=== PATIENT | male | born 1995 | race Caucasian/White ===

== ENCOUNTER 2019-11-06 14:29 | Emergency (ER) | payer BC ==
[2019-11-06 14:56] VITALS: BP 146/71
--- NOTE | 2019-11-06 15:09 | UC ---
Respiratory Complaint HPI - HPI Summary HPI Summary: C/O congestion, cough, sore throat x 5 days. Sore throat is worse. C/O strep. H/ O exercise induced bronchospasm. No wheezing yet, but cough a little worse at night. - History of Current Complaint Stated Complaint: SORE THROAT Hx Obtained From: Patient Onset/Duration: Sudden Onset, Lasting Days - 5, Worse Since - onset Timing: Constant Severity Initially: Mild Severity Currently: Moderate Pain Intensity: 3 Character: Cough: Productive Aggravating Factors: Deep Breaths, Recumbent Position Alleviating Factors: Nothing Associated Signs And Symptoms: Positive: URI, Nasal Congestion - Allergies/Home Medications Allergies/Adverse Reactions: Allergies Allergy/AdvReac Type Severity Reaction Status Date / Time No Known Allergies Allergy Verified 11/06/19 14:56 Home Medications: Home Medications Albuterol HFA INHALER* [Ventolin HFA Inhaler*] 2 puff INH Q4H PRN #1 mdi [Rx] predniSONE 20 mg TAB [Deltasone 20 MG TAB*] 60 mg PO DAILY #18 tab 11/06/19 [Rx] PMH/Surg Hx/FS Hx/Imm Hx Previously Healthy: Yes - Surgical History Surgical History: Yes Surgery Procedure, Year, and Place: 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 - Family History Known Family History: Negative: Cardiac Disease, Hypertension, Diabetes - Social History Occupation: Student Lives: Dormitory/Roommates Alcohol Use: Weekly Substance Use Type: Marijuana Smoking Status (MU): Never Smoked Tobacco Review of Systems All Other Systems Reviewed And Are Negative: Yes Constitutional: Positive: Fatigue ENT: Positive: Sore Throat, Nasal Discharge Respiratory: Positive: Cough Physical Exam Triage Information Reviewed: Yes Appearance: No Pain Distress, Well-Nourished, Ill-Appearing - mild Vital Signs: Initial Vital Signs Temp 99.2 F 11/06/19 14:51 Pulse 52 11/06/19 14:51 Resp 16 11/06/19 14:51 BP 146/71 11/06/19 14:51 Pulse Ox 100 11/06/19 14:51 Vital Signs Reviewed: Yes Eyes: Positive: Conjunctiva Clear ENT: Positive: TMs normal. Negative: Pharynx normal - cleft palate repair. Mild erythema Neck exam: Normal Respiratory: Positive: Lungs clear, Rhonchi - just with coughing Cardiovascular Exam: Normal Musculoskeletal Exam: Normal Neurological Exam: Normal Psychological Exam: Normal Skin Exam: Normal Respiratory Course/Dx - Differential Dx/Diagnosis Differential Diagnosis/HQI/PQRI: Asthma, Bronchitis, Lower Resp Infection, Sinusitis Provider Diagnosis: Upper respiratory infection with cough and congestion Discharge ED - Sign-Out/Discharge Documenting (check all that apply): Patient Departure All imaging exams completed and their final reports reviewed: No Studies - Discharge Plan Condition: Stable Disposition: HOME Prescriptions: Albuterol HFA INHALER* [Ventolin HFA Inhaler*] 2 puff INH Q4H PRN #1 mdi PRN Reason: Wheezing predniSONE 20 mg TAB [Deltasone 20 MG TAB*] 60 mg PO DAILY #18 tab Patient Education Materials: Upper Respiratory Infection (ED) Referrals: No Primary Care Phys,NOPCP [Primary Care Provider] - Additional Instructions: Start the prednisone if you start to wheeze or have more trouble with the sore throat. - Billing Disposition and Condition Condition: STABLE Disposition: Home
== END 2019-11-06 15:17 | disposition home or self-care (01) ==
LOC: UCCORT 14:29
DX: J06.9 Acute upper respiratory infection, unspecified (principal); R05 Cough; R09.89 Other specified symptoms and signs involving the circulatory and respiratory systems
CPT/HCPCS: 87651; 99202; G0463